=== PATIENT | female | born 1990 | race Caucasian/White ===

== ENCOUNTER 2016-12-09 05:46 | Emergency (ER) | payer OTHER ==
[~2016-12-09] VITALS: Ht 154.9 cm; Wt 76.8 kg
[~2016-12-09 05:46] MED LIST: BUPR100T7 PO; FLUC150T48 PO; TRAZ-118 PO
[2016-12-09 05:59] VITALS: BP 110/82; PULSE 76; RESP 16; O2SAT 95
--- NOTE | 2016-12-09 06:28 | ED.REPORT ---
HPI-Extremity Problem Upper Date of Service Dec 09, 2016 ED Provider: Maxime Wilks DO The patient is a 26 year old female who presents to the emergency department complaining of left upper back pain that she noticed upon wakening this morning. The pain radiates into her left arm. Her pain is worse with movement. She is however able to move her shoulder normally and has normal sensation. She has not had similar symptoms in the past. She is a [employer] and lifts daily but does not recall a specific injury. Nursing Notes Stated Complaint: SHOULDER PAIN Chief Complaint: Back Pain or Injury Nursing Notes Reviewed: Yes Allergies: Coded Allergies: No Known Allergies (Unverified Allergy, Unknown, 08/21/15) Scheduled Bupropion ER (Wellbutrin SR) 100 Mg Tablet.er 75 MG PO BID Fluconazole (Diflucan) 150 Mg Tablet 150 MG PO ONCE Trazodone (Trazodone) 100 Mg Tablet 100 MG PO HS Scheduled PRN Cyclobenzaprine (Cyclobenzaprine) 10 Mg Tablet 10 MG PO TID PRN PRN Spasm Naproxen (Naproxen) 500 Mg Tab 500 MG PO BID PRN PRN For Pain General Time Seen by MD: 06:26 Chief Complaint Shoulder injury left Hx Obtained From: Patient Arrived By: Walk-in Onset Occurred: 1 - 4 hours ago Symptom Duration: Since onset Location: : Shoulder left Quality: Painful Severity: Current: Moderate Severity: Maximum: Moderate Pertinent Negative: Pt denies other symptoms Exacerbated by: Range of motion, Movement Recent Healthcare: No recent doctor visit, No recent hospitalization Similar Sx Previous: No Past Medical History Past Medical History Anxiety Depression Insomnia Diverticulitis Chlamydia Past Surgical History None reported Smoking History Current Every Day Smoker Social History Alcohol Use: Denies alcohol use Drug Use: THC Other Social History: Local resident Occupation [employer] Ambulatory Status Independent Review of Systems Musculoskeletal: Reports: Back pain, Extremity pain, Joint pain Neurologic: Denies: Focal weakness, Numbness Complete sys rev & neg: except as marked. Physical Exam Initial Vital Signs Vital Signs (First) Date Time Temp Pulse Resp B/P Pulse Ox O2 Delivery O2 Flow Rate FiO2 12/09/16 05:59 36.4 76 16 110/82 95 Room Air Initial VS: Reviewed Head / Eyes: Atraumatic, Normocephalic, PERRL ENT: Mucous membranes moist, Conjunctiva normal, No scleral icterus Neck: Supple, Non-tender, Full range of motion Respiratory: Breath sounds normal, Clear to auscultation, No respiratory distress Cardiovascular: Regular rate & rhythm, Heart sounds normal, Intact distal pulses Abdomen / GI: Soft, Non-tender, No guarding, No rebound, No distention Lymphatic: No lymphadenopathy Lower Extremities: Vascular intact, Neuro intact, No swelling, No tenderness Skin: Warm, Dry, No cyanosis Neurologic: Alert, Oriented, Nonfocal Psychiatric: Mood/affect normal, Behavior normal, Normal thought content General/Constitutional: Awake, Alert, Well appearing Back: No midline vertebral tend Tenderness in the thoracic paraspinal area. Pain with range of motion. Neuro intact. Tested level by level, no radicular numbness or weakness noted. Re-Eval/Medical Decision Med Decision/Clinical Course Overall seems like a shoulder and upper back strain. There are no neuro deficits, no radicular symptoms, no fever or other high-risk features. Patient is placed on naproxen and cyclobenzaprine. Return and follow-up precautions are given. Source of Hx: Old records Re-Evaluation/Progress : Time of Eval: 06:47 Re-Evaluation/Progress Note: Discussed plan for discharge. All questions were addressed. Counseled Regarding: Diagnosis, Need for follow-up, When/why to return to ED Discharge & Departure Impression: Primary Impression: Left shoulder strain Encounter type: initial encounter Qualified Code: S46.912A - Strain of unspecified muscle, fascia and tendon at shoulder and upper arm level, left arm , initial encounter Disposition: Home Discharge Condition All VS Reviewed: Yes Condition: Stable Additional Instructions: Thank you for entrusting us with your care today. Your exam findings are reassuring. There is no evidence of anything acutely dangerous. I recommend using a sling for the next 1-2 days. Complete stretches and range of motion exercises a few times daily. Use the pain medication and muscle relaxers as prescribed. You can also try applying ice or heat if either of these help. Followup with your regular doctor in the next few days for re-evaluation. You may benefit from physical therapy if your pain continues. Return to the emergency department if you develop numbness, tingling, weakness, fever, or any other new or concerning symptoms. Referrals: Garrison Tucker DO (PCP) Scribe Attestation Portions of this note were transcribed by Yolanda Kruse. I, Dr. Wilks personally performed the history, physical exam and medical decision-making; I reviewed and confirmed the accuracy of the information in the transcribed note. Signed by: Rolando Arthur, 12/09/2016 and 0700. copies to: Garrison Tucker Timothy S DO Dec 09, 2016 06:28 Yolanda Kruse Dec 09, 2016 06:34
[2016-12-09] MEDS ORDERED: NPR500T PO (06:58)
[2016-12-09] MEDS ORDERED: CYCL10TA9 PO (06:58)
[2017-01-27] MEDS ORDERED: ACYC30OI TP (10:08)
[2017-01-27] MEDS ORDERED: CLOB15CR3 TP (10:08)
[2017-01-27] MEDS ORDERED: CEPH500C PO (10:08)
[2017-01-27] MEDS ORDERED: POLY17PO6 PO (10:08)
== END 2016-12-09 07:35 | disposition home or self-care (01) ==
LOC: SED 05:46
DX: S46.912A Strain of unspecified muscle, fascia and tendon at shoulder and upper arm level, left arm, initial encounter (principal); X58.XXXA Exposure to other specified factors, initial encounter; Y92.9 Unspecified place or not applicable; Y93.9 Activity, unspecified; Y99.9 Unspecified external cause status; F17.200 Nicotine dependence, unspecified, uncomplicated

== ENCOUNTER 2017-01-24 16:19 | Emergency (ER) | payer OTHER ==
[~2017-01-24] VITALS: Ht 154.9 cm; Wt 77.3 kg
[~2017-01-24 16:19] MED LIST changes: +CYCL10TA9 PO; +NPR500T PO
[2017-01-24 16:26] VITALS: BP 115/75; PULSE 77; RESP 16; O2SAT 98
[2017-01-24] MEDS ORDERED: DULO30CA50 PO (16:28)
[2017-01-24 17:22] LABS: BASOPHILS % (AUTO) 0.4 % (0-3); EOSINOPHILS % (AUTO) 0.9 % (0-5); Mean Corpuscular Hemoglobin 30.2 pg (27.0-35.0); Mean Corpuscular Volume 91.5 fL (81-100); NEUTROPHILS % (AUTO) 65.9 % (40-74); Platelet Count 253 bil/L (150-400)
[2017-01-24 17:39] LABS: APPEARANCE,URINE SLIGHTLY CLOUDY (CLEAR,HAZY); COLOR,URINE YELLOW (YELLOW); OCCULT BLOOD,URINE NEGATIVE (NEGATIVE); UROBILINOGEN,URINE NORMAL (NORMAL)
[2017-01-24 17:45] LABS: Magnesium 1.6 mg/dL (1.6-2.6)
[2017-01-24] MEDS ORDERED: 0.9% Sodium Chloride 1,000 ML IV ONE (19:31)
--- NOTE | 2017-01-24 19:31 | ED.REPORT ---
HPI-Abd Pain F Under 40 Date of Service Jan 24, 2017 ED Provider: Dale Cunha MD The patient is a 26 year old female who presents to the ED with intermittent vomiting for the last 3 months. The pain has increased in severity over past few days. She ate salad earlier today and immediately became extremely nauseous and bloated. She throws up at least once a week. Pt reports that every time she eats she becomes very distended. She has not been to see any doctor for her symptoms. Pt denies dysuria, hematuria, hematochezia, hematemesis. She has had more frequent bowel movements all day with a slightly juares coloration. She has not had her gallbladder removed. She has one child. No allergies to medication. Nursing Notes Stated Complaint: BACK PAIN, UTI Chief Complaint: Female Abdominal Pain Nursing Notes Reviewed: Yes Allergies: Coded Allergies: No Known Allergies (Verified Allergy, Unknown, 01/24/17) Scheduled Duloxetine (Duloxetine) 30 Mg Capsule.dr 30 MG PO BID Trazodone (Trazodone) 100 Mg Tablet 100 MG PO HS General Time Seen by MD: 18:51 Chief Complaint Vomiting moderate Hx Obtained From: Patient Arrived By: Walk-in Sudden in Onset?: Yes Onset Occurred: More than a week ago... 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 Physical Exam Initial Vital Signs Vital Signs (First) Date Time Temp Pulse Resp B/P Pulse Ox O2 Delivery O2 Flow Rate FiO2 01/24/17 16:26 36.4 77 16 115/75 98 Room Air Initial VS: Reviewed Head / Eyes: Atraumatic, Normocephalic, PERRL ENT: Mucous membranes moist, Conjunctiva normal, No scleral icterus Neck: Supple, Non-tender, Full range of motion Extremities: Vascular intact, Neuro intact, No swelling, No tenderness Skin: Warm, Dry, No cyanosis Neurologic: Alert, Oriented, Nonfocal Psychiatric: Mood/affect normal, Behavior normal, Normal thought content General/Constitutional: Awake, Alert, Cooperative, Not toxic appearing Respiratory / Chest: Atraumatic, Breath sounds NL, Breath sounds = bilat Cardiovascular: Heart rate NL, Regular rhythm, Heart sounds NL Abdomen: Atraumatic, Soft slight lower quadrant tenderness Back: Atraumatic, Inspection NL, Full range of motion Interpretation & Diagnostics Interpretation & Diagnostics: ABDOMINAL US IMPRESSION: 1. Cholelithiasis and mild gallbladder wall thickening in the absence of pericholecystic fluid or sonographic Marcum sign. These findings are equivocal for acute cholecystitis. Please correlate with physical exam findings and laboratory values. These results were discussed by the lab animal technician with Dr. Cunha at 9:35 PM on 01/24/17. Dictated by: Kelly Elias M.D. on 01/24/2017 at 21:48 Approved by: Kelly Elias M.D. on 01/24/2017 at 21:51 Lab Results Interpretation Result Diagram: 01/24/17 1703 01/24/17 1703 Test 01/24/17 14:30 01/24/17 17:03 Urine Color Yellow (YELLOW) Urine Appearance Slightly cloudy Urine pH 8.0 (5.0-8.0) Urine Specific [place] 1.010 (1.003-1.035) Urine Protein Negativemg/dL (NEG,TRACE) Urine Glucose (UA) Negativemg/dL (NEGATIVE) Urine Ketones Negativemg/dL (NEGATIVE) Urine Occult Blood Negative (NEGATIVE) Urine Nitrite Negative (NEGATIVE) Urine Bilirubin Negative (NEGATIVE) Urine Urobilinogen Normalmg/dL (NORMAL) Urine Leukocyte Esterase Negative (NEGATIVE) Urine RBC 0-2/hpf (0-2) Urine WBC 0-5/hpf (0-5) Urine Epithelial Cells Many/hpf (NONE-MOD) Urine Crystals Amorphous urates (NONE Urine Bacteria Few/hpf (NONE-FEW) Urine Hyaline Casts None/lpf (NONE) Urine Granular Casts None seen (NONE SEEN) Urine Waxy Casts None seen (NONE SEEN) Urine Red Blood Cell Casts None seen (NONE SEEN) Urine White Blood Cell Casts None seen (NONE SEEN) Urine Mucus None seen (None Seen) Urine Trichomonas None seen (NONE SEEN) Urine Yeast None (NONE SEEN) Urinalysis Comment None Urine Culture Reflexed Not indicated White Blood Count 10.1th/mm3 (3.8-10.1) Red Blood Count 4.37mil/mm3 (3.90-5.20) Hemoglobin 13.2g/dL (12.0-15.6) Hematocrit 40.0% (35.0-46.0) Mean Corpuscular Volume 91.5fL (81-100) Mean Corpuscular Hemoglobin 30.2pg (27.0-35.0) Mean Corpuscular Hemoglobin Concent 33.0% (32.0-37.0) Red Cell Distribution Width 12.5% (12.3-15.4) Platelet Count 253bil/L (150-400) Neutrophils (%) (Auto) 65.9% (40-74) Lymphocytes (%) (Auto) 26.6% (14-46) Monocytes (%) (Auto) 6.0% (4-12) Eosinophils (%) (Auto) 0.9% (0-5) Basophils (%) (Auto) 0.4% (0-3) Sodium Level 140mEq/L (134-144) Potassium Level 4.2mEq/L (3.5-5.2) Chloride Level 100mEq/L (97-108) Carbon Dioxide Level 26mmol/L (18-29) Blood Urea Nitrogen 7mg/dL (6-20) Creatinine 0.77mg/dL (0.57-1.00) Estimat Glomerular Filtration Rate 128mL/min (>59) Glucose Level 98mg/dL (60-99) Calcium Level 9.1mg/dL (8.5-10.1) Magnesium Level 1.6mg/dL (1.6-2.6) Total Bilirubin 0.3mg/dL (0.0-1.2) Aspartate Amino Transf (AST/SGOT) 15U/L (0-50) Alanine Aminotransferase (ALT/SGPT) 9U/L (0-32) Alkaline Phosphatase 87U/L (25-150) Total Protein 7.3g/dL (6.4-8.4) Albumin 4.5g/dL (3.4-5.0) Lipase 23U/L (13-60) Re-Eval/Medical Decision Med Decision/Clinical Course Med Decision/Clinical Course: 26-year-old female who has a classic story for biliary colic. Developed bloating and pain in the right upper quadrant after eating salad dressing with salad today. She has had multiple prior episodes. Her stools been spooler operator in color than typical but not white. She has had no fever or other signs of acute cholecystitis. Her labs are completely benign. Ultrasound shows multiple small gallstones. She is essentially pain-free at this point. Discharged now with Vicodin and Zofran for home use. Low fat diet discussed and recommended. Follow-up with surgery. Counseled Regarding: Diagnosis, Lab results, Need for follow-up, When/why to return to ED Discharge & Departure Primary Impression: Biliary colic Disposition: Home Discharge Condition All VS Reviewed: Yes Condition: Stable Additional Instructions: Your symptoms appear to be coming from gallstones, intermittently being forced into the neck the gallbladder and causing crampy pain. This can become serious and good upstrokes, and can result in infection and serious illness. Take Ibuprofen as directed for pain. You may use Vicodin sparingly if additional pain relief is needed. Follow up with your primary care physician. Call the surgical office tomorrow for follow-up appointment Return to the Emergency Department for any new or worsening symptoms, particularly fever, uncontrolled vomiting, or pain that lasts longer than 4-5 hours. I hope you feel better soon! Referrals: Danielle Stokc DO (PCP) Ayan Attestation Portion of this note were transcribed by Peyton Dewitt. I, Dr. Cunha, personally performed the history, physical exam, and medical decision-making: I reviewed and confirmed the accuracy for the information in the transcribed note. Signed by: ayan Cho, 01/24/17 [id number] copies to: Danielle Stock Christopher W MD Jan 24, 2017 19:31 Peyton Dewitt Jan 24, 2017 19:32
[2017-01-24] MEDS ORDERED: Ondansetron 2 mg/mL 2 mL Inj IVPUSH ONE (19:35)
[2017-01-24] MEDS ORDERED: Pantoprazole 4 mg/mL 10 mL Inj IVPUSH ONE (19:35)
[2017-01-24] MEDS ORDERED: Ketorolac 15 mg/mL Inj IVPUSH ONE (19:35)
--- NOTE | 2017-01-24 21:52 | DRSVH ---
PROCEDURE: US ABDOMEN ([id number]) INDICATIONS: ruq pain, bloating. pale stools TECHNIQUE: Real-time scanning was performed of the abdominal and retroperitoneal organs, with image documentatio n. COMPARISON: None. FINDINGS: Liver: Liver is normal in size and homogeneous in echotexture. Gallbladder: The gallbladder wall measures 4.0 mm in thickness. Multiple mobile stones are present wi thin the gallbladder fundus in addition to gallbladder sludge. No pericholecystic fluid or sonographi c Marcum's sign. Biliary ducts: Intrahepatic bile ducts are non-dilated. Extrahepatic bile duct caliber measures 4 m m. Normal is 6-7 mm or less in diameter, or 10 mm or less post-cholecystectomy. Pancreas: Visualized portions of the pancreas are sonographically normal. The tail the pancreas is not well-visualized. Spleen: Spleen is normal in size and homogeneous in echotexture. Kidneys: Kidneys are normal in size and echotexture. Right kidney measures 10.7 cm long; left kidne y measures 10.3 cm long. No hydronephrosis or nephrolithiasis. No solid masses. Aorta: Visualized aorta is normal in caliber at less than 3 cm. Iliacs: Proximal common iliac arteries are normal in caliber at less than 2.5 cm. IVC: Intrahepatic inferior vena cava is patent. Miscellaneous: No free abdominal fluid. IMPRESSION: 1. Cholelithiasis and mild gallbladder wall thickening in the absence of pericholecystic fluid or son ographic Marcum sign. These findings are equivocal for acute cholecystitis. Please correlate with phy sical exam findings and laboratory values. These results were discussed by the ms sql server developer with Dr. Cunha at 9:35 PM on 01/24/17. Dictated by: Kelly Elias M.D. on 01/24/2017 at 21:48 Approved by: Kelly Elias M.D. on 01/24/2017 at 21:51
[2017-01-24 22:16] VITALS: BP 113/53; PULSE 63; O2SAT 94
[2017-01-24] MEDS ORDERED: _HYDROcodone/APAP 5-325 mg Tablet PO PRN (23:45)
[2017-01-24] MEDS ORDERED: _Ondansetron ODT 4 mg Tablet PO PRN (23:45)
[2017-01-25 00:45] VITALS: BP 106/69; PULSE 68; RESP 16; O2SAT 97
[2017-01-27] MEDS ORDERED: CLOB15CR3 TP (10:08)
[2017-01-27] MEDS ORDERED: ACYC30OI TP (10:08)
[2017-01-27] MEDS ORDERED: CEPH500C PO (10:08)
[2017-01-27] MEDS ORDERED: POLY17PO6 PO (10:08)
== END 2017-01-25 00:47 | disposition home or self-care (01) ==
LOC: SED 16:19 → OSC 19:17 → UNDOADMOB 19:17 → SED 01-25 00:47
DX: K80.50 Calculus of bile duct without cholangitis or cholecystitis without obstruction (principal); F17.200 Nicotine dependence, unspecified, uncomplicated
CPT/HCPCS: 36415; 76700; 80053; 81000; 81025; 83690; 83735; 85025; 96361; 96374; 96375; 99285; J1885; J2405; J7030

== ENCOUNTER 2017-01-28 11:59 | Day surgery (SDC) | payer OTHER ==
[~2017-01-28] VITALS: Ht 154.9 cm; Wt 80.2 kg
[2017-01-28] VITALS (12 sets, daily range): BP systolic 108–148; BP diastolic 58–108; PULSE 67–117; RESP 10–20; O2SAT 95–100
[~2017-01-28 11:59] MED LIST changes: +ACYC30OI TP; -BUPR100T7 PO; +CEPH500C PO; +CLOB15CR3 TP; -CYCL10TA9 PO; +DULO30CA50 PO; -FLUC150T48 PO; -NPR500T PO; +POLY17PO6 PO
[2017-01-28] MEDS ORDERED: Dexamethasone 4 mg/mL Inj ONE (12:00)
[2017-01-28] MEDS ORDERED: fentaNYL-PF 50 mCg/mL 2 mL Inj ONE ×2 (12:00→15:43)
[2017-01-28] MEDS ORDERED: Rocuronium 10 mg/mL 5 mL Inj ONE (12:00)
[2017-01-28] MEDS ORDERED: Ondansetron 2 mg/mL 2 mL Inj ONE (12:00)
[2017-01-28] MEDS ORDERED: Propofol 10,000 mCg/mL 20 mL Inj ONE (12:00)
[2017-01-28] MEDS ORDERED: Remifentanil 1 mg/3 mL Inj ONE (12:00)
[2017-01-28] MEDS: Lactated Ringer's 1,000 ML IV SCH ×2 (12:40→14:31)
[2017-01-28] MEDS ORDERED: Bupivacaine-MPF 0.25%/EPI 30 mL Inj INJ ONE (14:57)
--- NOTE | 2017-01-28 15:05 | PCM.HPANE ---
Patient Data Surgeon Admitting Provider: Attending Provider:Crow Kruse MD Primary Care Physician:Danielle Stock DO Other Provider:[facility] Reason for Visit Gallbladder Disease Ht/WT & BMI Height (Feet): 5 Height (Inches): 1 Weight (Kilograms): 80.2 Body Mass Index 33.00 Allergies Coded Allergies: No Known Allergies (Verified Allergy, Unknown, 01/28/17) Past Anesthesia History Anesthesia History: Denies:: Abnormal Airway, Anesthesia Reactions, Difficult Intubation, Fam Anesthesia Reaction, Fam Malignant Hypertherm, Malignant Hyperthermia Diabetes History Hx Diabetes?: No MRSA MRSA: No Medications Home Meds Incl Beta Colby: No Reported Medications Acyclovir (Zovirax)2 Applic/Gm Oint1 Applic TP DIRECTED PRN FOLLICULITIS 5% 01/27/17 Polyethylene Glycol 3350 (Miralax)17 Gm Powd.pack17 Gm PO DAILY 01/27/17 Clobetasol Propionate/Emoll (Clobetasol Emollient 0.05% Crm)15 Gm Cream..g.1 Appl TP BID #1 TUBE 01/27/17 Cephalexin 500 Mg Ltssncs706 Mg PO BID #40 CAPSULE Ref 0 01/27/17 Duloxetine 30 Mg Capsule.dr30 Mg PO BID #60 01/24/17 Trazodone 100 Mg Wzgbjf351 Mg PO HS Ref 0 08/21/15 Discontinued Reported Medications Bupropion ER (Wellbutrin SR)100 Mg Tablet.er75 Mg PO BID Ref 0 08/22/15 Discontinued Scripts Cyclobenzaprine 10 Mg Autwkl84 Mg PO TID PRN Spasm #14 TABLET Prov:Maxime Wilks DO 12/09/16 Naproxen 500 Mg Mul363 Mg PO BID PRN For Pain #30 TABLET Prov:Maxime Wilks DO 12/09/16 Fluconazole (Diflucan)150 Mg Fqsuoe354 Mg PO ONCE #2 TABLET Ref 0 Prov:Vitaly Cruz MD 07/18/16 History History of ENT Problems?: No HEENT History: Denies:: Abnormal Airway Difficult Intubation Hearing Problem Hx of Heart Problems?: No Cardiovascular History: Denies:: Congestive Heart Failure Heart Murmur Hypertension Hx of Respiratory Problem?: No Respiratory History: Denies:: Tuberculosis Use of C-PAP Machine Hx Neurologic Problems?: Yes Neurological History: Denies:: CVA Hx of GI Problems?: Yes Gastrointestinal History: Positive for:: Gall Bladder Disease (=CURRENT PROBLEM C/OF ABD PAIN, N&V) Denies:: Diverticulitis (DIVERTICULOSIS) Rectal Bleeding (HX COLITIS) Hx of Problems?: No HX of Peritoneal Dialysis: No Female Hx: Denies:: Currently Pelvic Inflammatory (HX CHLAMYDIA) Skin History: Positive for:: History Skin Disorders? (HX PERINEAL FOLLICULITIS , HAIR LOSS,ECZEMA OF HANDS) Denies:: Pressure Ulcers Hx Musculoskeletal Problems?: Yes Musculoskeletal History: Positive for:: Musculoskeletal Trauma (HX LT SHOULDER STRAIN 11/2016) Hx of Psycho/Social Problems?: Yes Psycho Social History: Positive for:: Anxiety Hx Depression Hx Surgeries?: No Hx Any Other Health Problems?: No Other History: Positive for:: Hospitalization (CHILDBIRTH) Denies:: Cancer Endocrine Disease Thyroid Disease History Blood Transfusions: Denies:: Blood Transfusions Hx Diabetes: No Hx Alcohol Use: NoHx Substance Use: Yes (THC) Smoking Status: Current Every Day Smoker Have You Smoked inLast 12 mo: YesApprox How Many Cigarettes/day: 4 C/DAY Stop/Bang S-Snoring: Do You Snore Loudly: No T-Tired: feel tired, fatigued: Yes O-Obsered: Observed not breath: No P-Blood Pressure: treated: No B- Body Mass Index > 35 kg/m2: No A- Age over 50: No N- Neck Large Circumference: No G- Gender Male: No MERY Total Score: 1 Risk Assessment Category Category 1A: Patient has history of documented sleep apnea, and HAS NOT received any narcotic, sedative or anesthesia administration during this stay. Category 1B: Patient has history of documented sleep apnea, and HAS received any narcotic , sedative or anesthesia administration during this stay Category 2: Patient has SUSPECTED Obstructive Sleep Apnea, and HAS received any narcotic , sedative or anesthesia administration during this stay. Category 3: Patient has SUSPECTED Obstructive Sleep Apnea and HAS NOT received narcotic, sedative or anesthesia administration during this stay. Category 4: Outpatient in Procedural Areas with known sleep apnea or who screen positive for High Risk via the STOP/BANG questionnaire. Exam Exam Vital Signs Vital Signs Date Time Temp Pulse Resp B/P Pulse Ox O2 Delivery O2 Flow Rate FiO2 01/28/17 12:56 36.5 70 18 108/68 95 Room Air General Appearance: Alert, Oriented X3, Cooperative, No Acute Distress HEENT/AIRWAY: MP 2 Lungs: Clear to Auscultation, Normal Air Movement Heart: Exam Unremarkable, Regular Rate/Rhythm, No Murmurs/Rubs/Gallops Meds/Labs/Diagnostics Admission Meds Current Medications Lactated Ringer's (Lr) 1,000 ml @ 120 mls/hr Q8H20M IV Last administered on t 12:40; Start 01/28/17 at 05:00; Stop 01/28/17 at 13:19; Status DC Plan Impression Patient chart reviewed, patient interviewed and anesthestic plan with risks, benefits, and alternatives discussed, and informed consent obtained. NPO Status: MIDNIGHT ASA Physical Status: ASA2 Mod Systemic Disease Anesthetic Plan: GA Bene/Risks/Altern/Consents: Yes HP Complete Prior to Induction: Yes Ishaan Maurer MD Jan 28, 2017 13:30
[2017-01-28] MEDS ORDERED: Lactated Ringer's 1,000 ML IV SCH (15:07)
[2017-01-28] MEDS ORDERED: Lactated Ringer's 500 ML IV PRN (15:07)
[2017-01-28] MEDS ORDERED: Phenylephrine 10,000 mCg/mL Inj IVPUSH PRN (15:10)
[2017-01-28] MEDS ORDERED: MetoCLOpramide 5 mg/mL 2 mL Inj IVPUSH PRN (15:10)
[2017-01-28] MEDS ORDERED: Ondansetron 2 mg/mL 2 mL Inj IVPUSH PRN (15:10)
[2017-01-28] MEDS ORDERED: Dexamethasone 4 mg/mL Inj IVPUSH PRN (15:10)
[2017-01-28] MEDS ORDERED: HYDROmorphone 1 mg/mL Inj IVPUSH PRN (15:10)
[2017-01-28] MEDS ORDERED: EPHEDrine Sulfate 50 mg/mL Inj IVPUSH PRN (15:10)
[2017-01-28] MEDS ORDERED: oxyCODONE-Acetamin 5-325 mg Tablet PO PRN (15:35)
[2017-01-28] MEDS: fentaNYL-PF 50 mCg/mL 2 mL Inj IVPUSH PRN ×3 (15:43→16:10)
--- NOTE | 2017-01-28 16:10 | PCM.ANEP1 ---
Post Anesthesia Phase 1 PACU Phase 1 Assessment Vital Signs Vital Signs Date Time Temp Pulse Resp B/P Pulse Ox O2 Delivery O2 Flow Rate FiO2 01/28/17 12:56 36.5 70 18 108/68 95 Room Air Anesthetic Administered: GA Level of Alertness: Awake, talking THIBODEAUX's with Equal Strength: Yes Pain: Yes Nausea or Vomiting: No Oxygen Delivery: Room Air Lungs: Clear to Auscultation, Normal Air Movement Dermatome Level: Full Sensation Ishaan Maurer MD Jan 28, 2017 16:10
--- NOTE | 2017-01-28 16:36 | PCM.ANEP2 ---
Post Anesthesia Evaluation ASA/CMS Post Anesthesia VS in Patient's Normal Range?: Yes Resp Stable; Airway Patent?: Yes CV Function & Hydration Stable: Yes Mental Status Recovered?: Yes Pain control Satisfactory?: Yes N/V Control Satisfactory?: Yes Ishaan Maurer MD Jan 28, 2017 16:36
--- NOTE | 2017-01-29 02:50 | OP ---
[address] [address] OPERATIVE REPORT PATIENT: EDITH STRATTON : 1990 MR#: [id number] ADMIT: 01/28/2017 JOB ID: [id number] DATE OF SURGERY: 01/28/2017 ANESTHESIA: General. PREOPERATIVE DIAGNOSIS(ES): Symptomatic cholelithiasis. POSTOPERATIVE DIAGNOSIS(ES): Symptomatic cholelithiasis. OPERATIVE PROCEDURE: Laparoscopic cholecystectomy. SURGEON: Crow Kruse MD. GRINDER SET UP OPERATOR: 1. Anirudh Montague PA-C (engineering inspection assistant was required for the safe and timely completion of the case). 2. ASHELY Robledo. COMPLICATIONS: None. ESTIMATED BLOOD LOSS: Minimal. CONDITION: Satisfactory. SPECIMEN: Gallbladder. FINDINGS: The gallbladder appeared unremarkable other than cholelithiasis. HISTORY/INDICATIONS: The patient is a 26-year-old female who for the past year has been experiencing episodic postprandial right upper quadrant abdominal pain. A particularly bad recent episode prompted a visit to the emergency department where ultrasound demonstrated cholelithiasis. She was referred to pr, and after discussion elected to undergo cholecystectomy. OPERATIVE TECHNIQUE: The patient was taken to the operating room and placed in the supine position. General anesthesia was administered and the abdomen was prepped and draped in a standard surgical fashion. A procedure pause was performed. Entry was gained into the abdomen through a supraumbilical incision using a 10 mm Optiview trocar. Pneumoperitoneum was achieved without complication. Local anesthetic was injected, followed by insertion of 5 mm ports in the subxiphoid, as well as two in the right upper quadrant. The gallbladder was grasped and retracted cephalad. The common bile duct was visualized coursing immediately next to the gallbladder. Dissection was then began to achieve a critical view of safety. After adequate dissection, the gallbladder was released from its proximity to the common bile duct and the critical view was obtained. A single clip was placed on the cystic artery and this was transected with electrocautery. Three clips were then placed on the duct and the duct was transected sharply. The remainder of the dissection of the gallbladder off the cystic plate was then completed. There was a little bit of bleeding from the fatty liver which was then coagulated. The gallbladder was removed through the umbilical port site. The fascia there was then closed using 0 PDS suture under laparoscopic visualization. Local anesthetic was injected into that port site. The lateral ports were then removed under direct visualization, followed by release of pneumoperitoneum and removal of the remaining port. Skin was closed using 4-0 Monocryl. The entire procedure was well tolerated without complication.
--- NOTE | 2017-02-02 10:00 | PATH ---
SURGICAL PATHOLOGY Attending Physician:Crow Kruse MD CASE STATUS: Signed Out PATIENT NAME: EDITH STRATTON PID: [id number] : 1990 DATE COLLECTED:01/28/2017 00:00 SPECIMEN: Gallbladder CLINICAL HISTORY: GALLBLADDER DISEASE 1). GALLBLADDER AND CONTENTS FINAL DIAGNOSIS: 1.GALLBLADDER, EXCISION: CHOLELITHIASIS WITH CHRONIC CHOLECYSTITIS. ICD10 CODE K80.6 GROSS DESCRIPTION: The specimen is received in one formalin filled container labeled with the patient's name, sublabeled "gallbladder and contents" and consists of an intact 8.6 x 3.0 x 3.0 CM gallbladder. The serosa is smooth. And the wall is 0.2-0.3 CM in thickness. The mucosa is a light green to dark green in color. The lumen contains a light green translucent mucoid material and 2 green juares calculus which range in size from 1.2-1.3 CM in greatest dimension. 5 u.s. representative sections are submitted in one cassette. 01/29/2017 DAC MICRO DESCRIPTION: See diagnosis. ICD-9 CODES: CPT CODES: 1: 94971 Electronically Signed Out Delano Maldonado MD, PhD [facility] [address], [place] [address] Technical component performed at [facility], [facility] [address], [place], [address]
== END 2017-01-28 23:59 | disposition home or self-care (01) ==
LOC: SAS 11:59
PROVIDERS: ATTEND General Practice
DX: K80.10 Calculus of gallbladder with chronic cholecystitis without obstruction (principal); K57.30 Diverticulosis of large intestine without perforation or abscess without bleeding; F41.9 Anxiety disorder, unspecified; F32.9 Major depressive disorder, single episode, unspecified; F17.210 Nicotine dependence, cigarettes, uncomplicated
CPT/HCPCS: 47562; J1100; J1170; J2175; J2250; J2405; J3010; J7120

== ENCOUNTER 2017-07-03 22:01 | Emergency (ER) | payer OTHER ==
[~2017-07-03] VITALS: Ht 154.9 cm; Wt 72.3 kg
[2017-07-03 22:06] VITALS: BP 120/82; PULSE 87; RESP 18; O2SAT 97
--- NOTE | 2017-07-03 22:24 | ED.REPORT ---
HPI-General Illness Date of Service Jul 03, 2017 ED Provider: Jeffy Carcamo DO Pt is a 26 y/o female with a history of herpes, hepatitis A, colitis, and chlamydia who presents to the ED c/o intermittent, external vaginal pain onset one month ago. Her vaginal pain is exacerbated by sitting and when wiping. Additional symptoms include swollen, painful labia and lower back pain. She denies dysuria, rash, fever, chills, nausea, vomiting, diarrhea, or focal weakness. Pt has not been sexually active since April 2017, and denies having symptoms similar to her herpes. The patient was recently seen at Urgent Care 3 days ago with similar symptoms and was diagnosed with a yeast infection. She has been taking OTC yeast medication with little relief. GC Chlamydia in May 2017 and 06/28/17 and were negative. Wet prep negative on . Urgent care charts reviewed Nursing Notes Stated Complaint: VAGINAL PAIN AND DISCOMFORT Chief Complaint: General Complaint Nursing Notes Reviewed: Yes Allergies: Coded Allergies: No Known Allergies (Verified Allergy, Unknown, 01/28/17) Scheduled Cephalexin (Cephalexin) 500 Mg Capsule 500 MG PO BID Clobetasol Propionate/Emoll (Clobetasol Emollient 0.05% Crm) 15 Gm Cream..g. 1 APPL TP BID Duloxetine (Duloxetine) 30 Mg Capsule.dr 30 MG PO BID Polyethylene Glycol 3350 (Miralax) 17 Gm Powd.pack 17 GM PO DAILY Trazodone (Trazodone) 100 Mg Tablet 100 MG PO HS Scheduled PRN Acyclovir (Zovirax) 2 Applic/Gm Oint 1 APPLIC TP DIRECTED PRN PRN FOLLICULITIS 5% General Time Seen by MD: 22:24 Chief Complaint Other (Vaginal pain ) Hx Obtained From: Patient Arrived By: Walk-in Sudden in Onset?: No Onset Occurred: More than a week ago... (1 month) Symptom Duration: Intermittent Quality: Painful (Pelvic) Radiation: : Does not radiate Severity: Current: Mild Severity: Maximum: Severe Pertinent Negative: Pt denies other symptoms Recent Healthcare: No recent hospitalization, Recent doctor visit Similar Sx Previous: Yes Past Medical History Past Medical History Anxiety Depression Insomnia Diverticulitis Chlamydia Herpes Past Surgical History Reports: Cholecystectomy Smoking History Current Every Day Smoker Social History Alcohol Use: Denies alcohol use Drug Use: THC Other Social History: Local resident Occupation [employer] Ambulatory Status Independent Review of Systems Swollen, painful labia Vaginal pain Full Review of Systems Constitutional: Denies: Chills, Fever GI: Denies: Diarrhea, Nausea, Vomiting Female: Denies: Dysuria Musculoskeletal: Reports: Back pain (Lower back pain) Skin: Denies Rash Neurologic: Denies: Focal weakness Complete sys rev & neg: except as marked. Physical Exam Vital Signs Vital Signs Date Time Temp Pulse Resp B/P Pulse Ox O2 Delivery O2 Flow Rate FiO2 07/04/17 00:10 84 16 128/81 97 Room Air 07/03/17 22:06 36.3 87 18 120/82 97 Room Air Initial VS: Reviewed Head / Eyes: Atraumatic, Normocephalic Neck: Supple, Full range of motion Lymphatic: No lymphadenopathy Extremities: Vascular intact, Neuro intact, No swelling, No tenderness Skin: Warm, Dry, No cyanosis Neurologic: Alert, Oriented, Nonfocal Psychiatric: Mood/affect normal, Behavior normal, Normal thought content General/Constitutional: Awake, Alert Respiratory / Chest: Atraumatic, Breath sounds NL, Breath sounds = bilat, No respiratory distress Cardiovascular: Heart rate NL, Regular rhythm, Heart sounds NL Female Genitourinary: Outsole Flexer present, Atraumatic, No cervical motion tend Multiple ulcerations on bilateral labia No vesicles noted Interpretation & Diagnostics Lab Results Interpretation Test 07/03/17 22:33 Urine Color Yellow (YELLOW) Urine Appearance Cloudy (CLEAR,HAZY) Urine pH 5.5 (5.0-8.0) Urine Specific [place] 1.027 (1.003-1.035) Urine Protein Negativemg/dL (NEG,TRACE) Urine Glucose (UA) Negativemg/dL (NEGATIVE) Urine Ketones Negativemg/dL (NEGATIVE) Urine Occult Blood Negative (NEGATIVE) Urine Nitrite Negative (NEGATIVE) Urine Bilirubin Negative (NEGATIVE) Urine Urobilinogen Normalmg/dL (NORMAL) Urine Leukocyte Esterase Trace (NEGATIVE) Urine RBC 0-2/hpf (0-2) Urine WBC 11-50/hpf (0-5) Urine Epithelial Cells Many/hpf (NONE-MOD) Urine Crystals None seen (NONE SEEN) Urine Bacteria Many/hpf (NONE-FEW) Urine Hyaline Casts None/lpf (NONE) Urine Granular Casts None seen (NONE SEEN) Urine Waxy Casts None seen (NONE SEEN) Urine Red Blood Cell Casts None seen (NONE SEEN) Urine White Blood Cell Casts None seen (NONE SEEN) Urine Mucus None seen (None Seen) Urine Trichomonas None seen (NONE SEEN) Urine Yeast None (NONE SEEN) Urinalysis Comment None Urine Culture Reflexed Indicated Re-Eval/Medical Decision Med Decision/Clinical Course Patient has multiple ulcerations over her bilateral labia without vesicles, however it appears consistent with late herpes outbreak. There is no cervical motion tenderness and GC/chlamydia done 06/28 and wet prep both were negative. She found relief from topical lidocaine and was discharged home with same. I also discharged her home with topical acyclovir and oral acyclovir which she will take for the next 10 days. She had positive leukocytes in the urine and notes that she has had some urinary frequency so I treated her with Macrobid for UTI. She has follow-up with her regular doctor next week. Source of Hx: Old records Time of Eval: 23:35 Re-Evaluation/Progress Note: Pt rechecked. Peformed pelvic exam. Time of Eval: 23:45 Patient Status: Condition improved Re-Evaluation/Progress Note: Patient rechecked. Discussed plan for discharge. Patient understands and agrees with plan. F/U instructions and RTER warnings given. All questions addressed at this time. Counseled Regarding: Diagnosis, Lab results, Need for follow-up, When/why to return to ED Discharge & Departure Primary Impression: Genital herpes Herpes simplex infection site: vulvovaginitis Qualified Code: A60.04 - Herpesviral vulvovaginitis Additional Impressions: Vaginal pain UTI (urinary tract infection) Urinary tract infection type: acute cystitis Hematuria presence: without hematuria Qualified Code: N30.00 - Acute cystitis without hematuria Disposition: Home Discharge Condition All VS Reviewed: Yes Condition: Stable Patient Instructions: Genital Herpes Simplex (ED) Additional Instructions: Your emergency room evaluation today revealed ulcerations on your labia which are consistent with herpes. Please start acyclovir 400 mg 3 times daily for 10 days. Your urine shows signs of UTI and given your urinary frequency, I would like you to take Macrobid 100 mg twice daily for the next 5 days. Please follow -up with your primary care provider on Wednesday as scheduled. Return to the ER for new or worsening symptoms. Use the topical lidocaine provided today for relief of pain Referrals: Danielle Stock DO (PCP) [place] Attestation Portions of this note were transcribed by Elisha Bacon and Usha Barajas. I, Dr. Carcamo, personally performed the history, physical exam and medical decision-making; I reviewed and confirmed the accuracy of the information in the transcribed note. Signed by: Rolando Suarez, 06/26/17. copies to: Danielle Stock Gary R DO Jul 03, 2017 22:24 Elisha Bacon Jul 03, 2017 23:24 USHA BARAJAS Jul 04, 2017 00:56
[2017-07-03] MEDS ORDERED: Lidocaine 4% 50 mL Topical Solution TOPICAL ONE (22:52)
[2017-07-03 23:13] LABS: APPEARANCE,URINE CLOUDY (CLEAR,HAZY); COLOR,URINE YELLOW (YELLOW); PH,URINE 5.5 (5.0-8.0)
[2017-07-03 23:16] LABS: OCCULT BLOOD,URINE NEGATIVE (NEGATIVE); UROBILINOGEN,URINE NORMAL (NORMAL)
[2017-07-03] MEDS ORDERED: Nitrofurantoin Monohyd-Macrocryst 100 mg Capsule PO ONE (23:50)
[2017-07-03] MEDS ORDERED: Acyclovir 400 mg Tablet PO ONE (23:50)
[2017-07-04] MEDS ORDERED: Lidocaine 4% 50 mL Topical Solution TOPICAL ONE (00:07)
[2017-07-04 00:10] VITALS: BP 128/81; PULSE 84; RESP 16; O2SAT 97
== END 2017-07-04 00:10 | disposition home or self-care (01) ==
LOC: SED 22:01
DX: A60.04 Herpesviral vulvovaginitis (principal); N30.00 Acute cystitis without hematuria; R10.2 Pelvic and perineal pain; F17.200 Nicotine dependence, unspecified, uncomplicated